=== PATIENT | male | born 1995 | race Caucasian/White ===

== ENCOUNTER 2024-11-03 16:36 | Emergency (ER) | payer BC ==
[~2024-11-03] VITALS: Ht 180.3 cm; Wt 112.6 kg
[2024-11-03 19:12] LABS: KETONE, URINE AUTO RFX NEGATIVE (NEGATIVE); LEUKOCYTE ESTERASE UR AUTO RFX NEGATIVE (NEGATIVE); MUCUS, URINE RFX SMALL (NEGATIVE); NITRITE, URINE AUTO RFX NEGATIVE (NEGATIVE); RBC, URINE AUTO RFX 0 /HPF (0-3); SQUAM EPITHELIAL CELL UR AURFX 0 /HPF (0-6); WBC, URINE AUTO RFX 0 /HPF (0-3)
[2024-11-03 21:24] VITALS: BP 119/78; TEMP 97.9; O2SAT 98
== END 2024-11-03 21:25 | disposition home or self-care (01) ==
LOC: M ED 16:36
DX: N43.0 Encysted hydrocele (principal)